=== PATIENT | female | born 1945 | race African-American/Black ===

== ENCOUNTER 2018-09-22 20:20 | Emergency (ER) | payer MEDICARE ==
[~2018-09-22] VITALS: Ht 170.2 cm; Wt 63.5 kg
[2018-09-22 20:26] VITALS: BP 165/92
[2018-09-22] MEDS ORDERED: AMLODIPINE BESYL5 MG ORAL (20:35)
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
[2018-09-22] MEDS ORDERED: ACETAMINOPHEN-1 EAC1 ORAL (21:28)
[2018-09-22 21:41] VITALS: BP 165/92
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
== END 2018-09-22 21:41 | disposition home or self-care (01) ==
LOC: EMR 21:30
DX: S62.512A Displaced fracture of proximal phalanx of left thumb, initial encounter for closed fracture (principal); V43.52XA Car driver injured in collision with other type car in traffic accident, initial encounter; Y92.488 Other paved roadways as the place of occurrence of the external cause; I10 Essential (primary) hypertension; Z86.718 Personal history of other venous thrombosis and embolism; Z86.19 Personal history of other infectious and parasitic diseases
CPT/HCPCS: 29130; 99283